=== PATIENT | female | born 1995 | race Caucasian/White ===

== ENCOUNTER 2021-07-06 13:36 | Emergency (ER) | payer OTHER, SELFPAY ==
[2021-07-06] VITALS (7 sets, daily range): BP systolic 131–182; BP diastolic 71–100; PULSE 94–133; RESP 16–20; TEMP 36.6; O2SAT 99–100; BMI 23.6
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
[2021-07-06 14:01] LABS: Add Manual Diff / Slide Review NO; Basophils Absolute Auto 0 /uL (0-100); Basophils Percent Auto 0.5 % (0-2); Eosinophils Absolute Auto 100 /uL (0-450); Eosinophils Percent Auto 0.9 % (2-4); Hematocrit 41.9 % (36-46); Lymphocytes Absolute Auto 3800 /uL (1100-4500); Lymphocytes Percent Auto 41.2 % (25-40); Mean Corpuscular HGB Conc 33.4 % (30-36); Mean Corpuscular Hemoglobin 27.7 PG (26-34); Mean Corpuscular Volume 82.8 fL (80-100); Monocytes Absolute Auto 500 /uL (0-900); Monocytes Percent Auto 5.1 % (3-14); Neutrophils Absolute Auto 4800 /uL (1500-7000); Neutrophils Percent Auto 52.3 % (50-75); Platelet Count 429 X10^3/uL (150-400); Red Blood Cell Count 5.06 X10^6/uL (4.0-5.2); Red Cell Distribution Width 14.5 % (11.6-14.8); White Blood Cell Count 9.2 X10^3/uL (4.5-11.0)
[2021-07-06 14:12] LABS: Blood Urea Nitrogen 9 mg/dL (7-17); Carbon Dioxide 25 mmol/L (22-32); Chloride 105 mmol/L (98-107); Creatine Kinase 64 U/L (30-135); D Dimer < 200 ng/mL (<230); Potassium 3.3 mmol/L (3.4-5.1); Sodium 141 mmol/L (137-145)
[2021-07-06 14:13] LABS: Alanine Aminotransferase 14 IU/L (<35); Albumin 5.1 g/dL (3.5-5.0); Albumin Globulin Ratio 1.5 (1.0-2.8); Alkaline Phosphatase 43 U/L (38-126); Aspartate Aminotransferase 23 IU/L (14-36); BUN Creatinine Ratio 14.5 (6-22); Bilirubin Total 0.4 mg/dL (0.2-1.3); Calcium 9.5 mg/dL (8.4-10.2); Estimated Glomerular Filt Rate > 60.0 mL/min (>60); Globulin 3.3 g/dL (1.7-4.1); Glucose 115 mg/dL (70-100); HEMOLYSIS < 15 (0-50); Magnesium 1.9 mg/dL (1.6-2.3); Total Protein 8.4 g/dL (6.3-8.2)
[2021-07-06] MEDS: SODIUM CHLORIDE 0.9% 1,000 ML 1000 ML IV (14:14)
[2021-07-06 14:18] LABS: Prothrombin Time 11.1 SECONDS (10.1-12.7)
[2021-07-06 14:24] LABS: Troponin I < 0.012 ng/mL (0.01-0.034)
[2021-07-06] MEDS: METOCLOPRAMIDE 10 MG/2 ML INJ IV (14:41)
[2021-07-06] MEDS: KETOROLAC 30 MG/ML VIAL 15 MG IV (14:41)
== END 2021-07-06 15:53 | disposition home or self-care (01) ==
PROVIDERS: Emergency Provider Emergency Medicine
DX: R51.9 Headache, unspecified (principal); R55 Syncope and collapse; R03.0 Elevated blood-pressure reading, without diagnosis of hypertension; V89.0XXA Person injured in unspecified motor-vehicle accident, nontraffic, initial encounter
CPT/HCPCS: 36415; 70450; 80053; 82550; 83735; 84484; 85025; 85379; 85610; 93005; 93010; 96361; 96374; 96375; 99284; 99285; J1885; J2765

== ENCOUNTER 2023-07-04 06:24 | Outpatient (CLI) | payer OTHER, SELFPAY ==
--- NOTE | 2023-07-04 06:45 | PM.OBTRLD ---
Visit Information Visit Information Date of evaluation: 07/04/23 Primary OB Provider: Karen Irene On-call OB Provider: Karen Irene Reason for Evaluation: Yes rupture of membranes Comments/Additional reasons for admission: 28YO @ 38wks 3 days by 10 wk US presents for evaluation of PROM. [place] a large gush of fluid, noted to be clear, at 0330 and has had continued small gushes since. +FM. Had some mild cramping earlier, but it has eased. No vaginal bleeding. Routine care with CNMs without complications; depression currently stable on sertraline. Planning at [facility]. Agreed to come in to check on her baby and receive her first dose of antibiotics, but then plans on returning home to await labor. Accompanied by supportive spouse. Vital Signs Vital Signs: see below [facility] Medical History Painful menstrual periods Irregular menstrual cycle Heavy menstrual period Anxiety (2009) Depression (2009) Acne Oral contraception initial prescription Surgical History Anesthesia History of bunionectomy (~2014) [facility] teeth removed (~2018) Family History Mother Diabetes mellitus Hyperlipidemia Mental health problem Social History Smoking Status: Never smoker Review of Systems Review of Systems ROS: Yes All systems reviewed with the patient and are negative except as otherwise documented Exam Vital Signs (past 8 hours): BP- 132/96, 136/92, 126/84 HR- 96bpm T- 98.1F Temporal Resp Effort & Inspection: normal respiratory effort and able to speak in complete sentences Auscultation: clear to auscultation bilaterally Cardio Palpation: normal PMI Rate: regular rate Rhythm: regular rhythm Presentation: vertex Amniotic Fluid: clear Objective Labs 07/04/23 07:05 07/04/23 07:05 Evaluation Evaluation Baseline heart rate: 150 Variability: Moderate (11-25) monitor accelerations: Present Monitor Decelerations: Absent Contraction Frequency (minutes): 8 Uterine Contraction Intensity: Mild Category of Tracing: Reactive Non-invasive Membranes Rupture Test: positive Comments: CE deferred, PROM, not in labor Diagnosis, Plan/Disposition Final Diagnosis (1) PROM (premature rupture of membranes): Status: Acute (2) Elevated blood pressure reading without diagnosis of hypertension: Status: Acute (3) Anemia affecting in third trimester: Status: Acute Plan/Disposition Plan: Counseled on routine precautions and when to return sooner: decreased FM, vaginal bleeding, change in color of fluid or strong contractions. Encouraged balanced rest and activity while awaiting labor. Return to [facility] at 1130 for second dose of antibiotics and potential hospital admission. Will draw type & screen at [facility]. IV saline locked and remains in place as IV access was difficult to initiate. OB Disposition: home
[2023-07-04] MEDS: AMPICILLIN 2,000 MG in SODIUM CHLORIDE 0.9% 100 ML 200 MG IV (07:16)
[2023-07-04] MEDS: LACTATED RINGERS 1,000 ML 100 ML IV (07:17)
[2023-07-04 07:18] LABS: Add Manual Diff / Slide Review NO; Basophils Absolute Auto 100 /uL (0-100); Basophils Percent Auto 0.7 % (0-2); Eosinophils Absolute Auto 100 /uL (0-450); Eosinophils Percent Auto 1.1 % (2-4); Hematocrit 30.7 % (36-46); Hemoglobin 9.9 g/dL (12.0-16.0); Lymphocytes Absolute Auto 2400 /uL (1100-4500); Lymphocytes Percent Auto 18.1 % (25-40); Mean Corpuscular HGB Conc 32.3 % (30-36); Mean Corpuscular Hemoglobin 24.2 PG (26-34); Monocytes Absolute Auto 800 /uL (0-900); Monocytes Percent Auto 5.8 % (3-14); Neutrophils Absolute Auto 9800 /uL (1500-7000); Neutrophils Percent Auto 74.3 % (50-75); Platelet Count 233 X10^3/uL (150-400); Red Cell Distribution Width 15.7 % (11.6-14.8); White Blood Cell Count 13.2 X10^3/uL (4.5-11.0)
[2023-07-04 07:28] LABS: Alanine Aminotransferase 11 IU/L (<35); Albumin 3.3 g/dL (3.5-5.0); Alkaline Phosphatase 139 U/L (38-126); Aspartate Aminotransferase 18 IU/L (14-36); BUN Creatinine Ratio 10.5 (6-22); Bilirubin Total 0.3 mg/dL (0.2-1.3); Blood Urea Nitrogen 4 mg/dL (7-17); Calcium 9.2 mg/dL (8.4-10.2); Carbon Dioxide 22 mmol/L (22-32); Chloride 107 mmol/L (98-107); Estimated Glomerular Filt Rate > 60 mL/min (>60); Globulin 3.2 g/dL (1.7-4.1); Glucose 91 mg/dL (70-100); HEMOLYSIS < 15 (0-50); Potassium 3.9 mmol/L (3.4-5.1); Sodium 134 mmol/L (137-145); Total Protein 6.5 g/dL (6.3-8.2)
[2023-07-04 08:27] LABS: Creatinine Urine Random 40.5 mg/dL; Protein (Total) Urine Random 16 mg/dL (0-12); Protein Creatinine Ratio Urine 0.39 GRAM/24H
== END 2023-07-04 08:15 | disposition home or self-care (01) ==
LOC: LABOR 06:41 → OB 07-12 10:33
PROVIDERS: PCP Registered Nurse Diabetes Educator; Referring Provider Nurse Practitioner Obstetrics & Gynecology; Visit Provider Nurse Practitioner Obstetrics & Gynecology
DX: O42.92 Full-term premature rupture of membranes, unspecified as to length of time between rupture and onset of labor (principal); O99.013 Anemia complicating pregnancy, third trimester; D64.9 Anemia, unspecified; Z3A.38 38 weeks gestation of pregnancy; O26.893 Other specified pregnancy related conditions, third trimester; R03.0 Elevated blood-pressure reading, without diagnosis of hypertension; O42.90 Premature rupture of membranes, unspecified as to length of time between rupture and onset of labor, unspecified weeks of gestation; Z36.9 Encounter for antenatal screening, unspecified
CPT/HCPCS: 59025; 59050; 80053; 82570; 84112; 84156; 85025; 96360; G0378; G0379; J0290